=== PATIENT | female | born 1990 | race Caucasian/White ===

== ENCOUNTER 2020-07-26 14:13 | Emergency (ER) | payer OTHER ==
[~2020-07-26] VITALS: Ht 167.6 cm; Wt 55.0 kg
--- NOTE | 2020-07-26 14:32 | NUR ---
PT ROSE AFTER STATING ONE OF HER MULITPLE PERSONALITES WAS TELLING HER TO KILL HERSELF. PER EMS PT STATED SHE WAS GOING TO JUMP OFF OF BRIDGE ON TO FREEWAY TO KLL HERSELF. PT WAS AGIATED AND WAS GIVEN 5MG OF VERSED AND HALDOL BY EMS. PATIENT ATTACHED TO MONITORS. MERY. OMERO. PT OBTUNDED BUT RESPONDS TO PHYSICAL STIMULI. TRISTAN CORTEZ TO BEDSIDE FOR EVALUATION
[2020-07-26 15:00] LABS: BASOPHILS % (AUTO) 1 % (0-1); EOSINOPHILS % (AUTO) 1 % (1-7); LYMPHOCYTES % (AUTO) 21 % (22-44); MEAN CORPUSCULAR HEMOGLOBIN 30.1 pg (27.0-34.8); MEAN CORPUSCULAR HGB CONC 34.2 g/dL (32.4-35.8); MEAN PLATELET VOLUME 8.2 fL (7.4-10.4); MONOCYTES % (AUTO) 11 % (2-9); NEUTROPHILS % (AUTO) 66 % (42-75); PLATELET COUNT 343 x10^3/uL (130-400); RED BLOOD COUNT 4.46 x10^6/uL (3.82-5.3)
--- NOTE | 2020-07-26 15:03 | NUR ---
BELONGINGS STICKED AND PLACED IN PT BELONGING BAG IN LOCKER.
--- NOTE | 2020-07-26 15:06 | NUR ---
PT ASLEEP WITH EVEN AND UNLABORED RESPIRATIONS. VSS. NADN. SAFTEY PRECAUTIONS IN PLACE. SITTER AT BEDSIDE.
[2020-07-26 15:07] LABS: MD NO
[2020-07-26 15:09] LABS: ALBUMIN 4.4 g/dL (3.4-5.0); ANION GAP 9 mmol/L (5-15); CALCIUM 8.9 mg/dL (8.5-10.1); CHLORIDE 108 mmol/L (98-107); CREATININE 0.66 mg/dL (0.55-1.02)
[2020-07-26 15:24] LABS: AMPHETAMINE SCREEN, URINE Positive (Negative); BARBITURATE SCREEN, URINE Negative (Negative); BENZODIAZEPINE SCREEN, URINE Positive (Negative); CANNABINOID SCREEN, URINE Positive (Negative); COCAINE SCREEN, URINE Negative (Negative); METHADONE SCREEN, URINE Negative (Negative); OPIATE SCREEN, URINE Positive (Negative)
[2020-07-26 15:29] LABS: MICROSCOPIC INDICATED
--- NOTE | 2020-07-26 16:09 | NUR ---
PT ASLEEP WITH EVEN AND UNLABORED RESPIRATIONS. MERY. OMERO. SITTER AT BEDSIDE. SAFTEY PECAUTIONS IN PLACE.
--- NOTE | 2020-07-26 17:14 | NUR ---
RYAN CHAVIRAN TO BEDSIDE FOR EVALUATION.
[2020-07-26] MEDS ORDERED: QUETIAPINE 25MG TABLET PO PRN (17:30)
[2020-07-26 17:59] VITALS: BP 112/67
--- NOTE | 2020-07-26 18:38 | NUR ---
Patient given discharge instructions and they have confirmed that they understand the instructions. Patient ambulatory with steady gait. NAD, all questions answered appropriately, denies additional needs at this time. No personal belongings left in room after discharge.
== END 2020-07-26 18:39 | disposition home or self-care (01) ==
LOC: ED 14:30
DX: F31.9 Bipolar disorder, unspecified (principal); F44.9 Dissociative and conversion disorder, unspecified
CPT/HCPCS: 36415; 80048; 80299; 80307; 80320; 80329; 81001; 82040; 84703; 85025; 99284; G0480

== ENCOUNTER 2020-09-24 12:06 | Emergency (ER) | payer SELFPAY ==
[~2020-09-24] VITALS: Ht 162.6 cm; Wt 64.3 kg
[2020-09-24 12:10] VITALS: BP 146/95
--- NOTE | 2020-09-24 13:20 | NUR ---
HEAD OF MERCHANDISE BUYING: PER LAND SURVEYOR, PT DROPPED URINE SPECIMAN AT REGISTRATION DESK AND LEFT THE ER WAITING ROOM.
--- NOTE | 2020-09-24 13:35 | NUR ---
CLEANING ATTENDANT: PT CALLED FOR ROOM, NO ANSWER
--- NOTE | 2020-09-24 13:53 | NUR ---
CHILD WELFARE CONSULTANT: CALLED FOR ROOM, NO ANSWER
== END 2020-09-24 13:56 | disposition left against medical advice (07) ==
LOC: ED 13:50
DX: R10.9 Unspecified abdominal pain (principal); Z53.21 Procedure and treatment not carried out due to patient leaving prior to being seen by health care provider